=== PATIENT | female | born 1975 | race Caucasian/White ===

== ENCOUNTER 2017-03-15 07:39 | Inpatient (IN) | payer SELFPAY ==
[~2017-03-15] VITALS: Ht 170.2 cm; Wt 75.0 kg
[2017-03-15] VITALS (7 sets, daily range): BP systolic 98–135; BP diastolic 60–79; PULSE 80–93; RESP 16–18; TEMP 98.3–100.7; O2SAT 99–100
[2017-03-15] MEDS ORDERED: PANTOPRAZOLE SODIUM 40 MG VIAL IVP ONE (08:30)
[2017-03-15] MEDS ORDERED: ONDANSETRON HCL 4 MG/2 ML VIAL IVP ONE (08:30)
--- NOTE | 2017-03-15 08:35 | PD ---
HPI Chief Complaint: Abdominal Pain Time Seen by Provider: 08:23 Travel History International Travel<30 days: No Contact w/Intl Traveler<30days: No Traveled to known affect area: No History of Present Illness HPI 41-year-old female complains of left-sided abdominal pain with nausea. Patient states that the pain started this morning. Patient stated the pain is cramping pain intermittent pain localized to left side abdomen. Patient denies any pain radiation. Patient states that she has nausea but no vomiting diarrhea. Patient denies any dysuria or frequency. Patient denies any vaginal discharge or bleeding. Patient denies any fever chills. Patient denies any history GI issues in the past. Patient states that she unable to take any NSAIDs or pain medication. On a scale of 1-10 the pain is a 9. PFSH Past Medical History ?: Unknown Social History Tobacco Use: No Allergies-Medications (Allergen,Severity, Reaction): Uncoded Allergies: "PAIN KILLERS" (Adverse Reaction, Unknown, 03/15/17) Review of Systems General / Constitutional: No: Fever Eyes: No: Visual changes HENT: No: Headaches Cardiovascular: No: Chest Pain or Discomfort Respiratory: No: Shortness of Breath Gastrointestinal: Positive: Nausea, Abdominal Pain Genitourinary: No: Dysuria Musculoskeletal: No: Pain Skin: No Rash Neurologic: No: Weakness Psychiatric: No: Depression Endocrine: No: Polydipsia Hematologic/Lymphatic: No: Easy Bruising Physical Exam Narrative GENERAL: Well-nourished, well-developed patient. SKIN: Focused skin assessment warm/dry. HEAD: Normocephalic. EYES: No scleral icterus. No injection or drainage. NECK: Supple, trachea midline. No JVD or lymphadenopathy. CARDIOVASCULAR: Regular rate and rhythm without murmurs, gallops, or rubs. RESPIRATORY: Breath sounds equal bilaterally. No accessory muscle use. GASTROINTESTINAL: Abdomen soft, nondistended. Patient has moderate tenderness on palpation left upper quadrant left mid abdomen and left low quadrant of the abdomen. No rebound tenderness. No mass. MUSCULOSKELETAL: No cyanosis, or edema. BACK: Nontender without obvious deformity. No CVA tenderness. Neurologic exam normal. Data Data Last Documented VS Vital Signs Date Time Temp Pulse Resp B/P Pulse Ox O2 Delivery O2 Flow Rate FiO2 03/15/17 10:20 82 18 123/78 99 Room Air 03/15/17 07:40 98.3 Orders Complete Blood Count With Diff (03/15/17 08:29) Comprehensive Metabolic Panel (03/15/17 08:29) Lipase (03/15/17 08:29) Prothrombin Time / Inr (Pt) (03/15/17 08:29) Act Partial Throm Time (Ptt) (03/15/17 08:29) Urinalysis - C+S If Indicated (03/15/17 08:29) Ct Abd/Pel W Iv Contrast(Rout) (03/15/17 08:29) Iv Access Insert/Monitor (03/15/17 08:29) Ecg Monitoring (03/15/17 08:29) Oximetry (03/15/17 08:29) Ondansetron Inj (Zofran Inj) (03/15/17 08:30) Pantoprazole Inj (Protonix Inj) (03/15/17 08:30) Sodium Chlor 0.9% 1000 Ml Inj (Ns 1000 M (03/15/17 08:29) Ed Urine Pregnancytest Poc (03/15/17 08:29) Iohexol 350 Inj (Omnipaque 350 Inj) (03/15/17 09:44) Piperacil-Tazo 3.375 Gm Premix (Zosyn 3. (03/15/17 10:15) Metronidazole 500 Mg Inj (Flagyl 500 Mg (03/15/17 10:15) Admit Order (Ed Use Only) (03/15/17 10:38) Code Status (03/15/17 10:37) Vital Signs (Adult) Q4H (03/15/17 10:37) Activity Oob Ad C[place] (03/15/17 10:37) Intake + Output ARUN.QSHIFT (03/15/17 10:37) Notify Dr: Other (03/15/17 10:37) Diet Clear Liquid (03/15/17 Lunch) Sodium Chlor 0.9% 1000 Ml Inj (Ns 1000 M (03/15/17 10:37) Sodium Chloride 0.9% Flush (Ns Flush) (03/15/17 10:45) Sodium Chloride 0.9% Flush (Ns Flush) (03/15/17 21:00) Acetaminophen (Tylenol) (03/15/17 10:45) Ondansetron Inj (Zofran Inj) (03/15/17 10:45) Comprehensive Metabolic Panel (03/16/17 06:00) Complete Blood Count With Diff (03/16/17 06:00) Blood Culture (03/15/17 10:37) Lipase (03/16/17 06:00) Enoxaparin Inj (Lovenox Inj) (03/15/17 11:00) Naloxone Inj (Narcan Inj) (03/15/17 10:45) Inpatient Certification (03/15/17 ) Metronidazole 500 Mg Inj (Flagyl 500 Mg (03/15/17 18:00) Ciprofloxacin 400 Mg Premix (Cipro 400 M (03/15/17 11:00) Labs Laboratory Tests Test 03/15/17 08:30 White Blood Count 16.4 TH/MM3 Red Blood Count 4.55 MIL/MM3 Hemoglobin 12.7 GM/DL Hematocrit 39.8 % Mean Corpuscular Volume 87.4 FL Mean Corpuscular Hemoglobin 27.9 PG Mean Corpuscular Hemoglobin 31.9 % Concent Red Cell Distribution Width 14.1 % Platelet Count 188 TH/MM3 Mean Platelet Volume 8.9 FL Neutrophils (%) (Auto) 86.2 % Lymphocytes (%) (Auto) 6.7 % Monocytes (%) (Auto) 6.8 % Eosinophils (%) (Auto) 0.1 % Basophils (%) (Auto) 0.2 % Neutrophils # (Auto) 14.1 TH/MM3 Lymphocytes # (Auto) 1.1 TH/MM3 Monocytes # (Auto) 1.1 TH/MM3 Eosinophils # (Auto) 0.0 TH/MM3 Basophils # (Auto) 0.0 TH/MM3 CBC Comment DIFF FINAL Differential Comment Prothrombin Time 11.0 SEC Prothromb Time International 1.0 RATIO Ratio Activated Partial 23.2 SEC Thromboplast Time Urine Color YELLOW Urine Turbidity CLEAR Urine pH 6.5 Urine Specific [employer] 1.029 Urine Protein TRACE mg/dL Urine Glucose (UA) NEG mg/dL Urine Ketones NEG mg/dL Urine Occult Blood NEG Urine Nitrite NEG Urine Bilirubin NEG Urine Urobilinogen LESS THAN 2.0 MG/DL Urine Leukocyte Esterase SMALL Urine RBC 2 /hpf Urine WBC 4 /hpf Urine Squamous Epithelial 3 /hpf Cells Urine Mucus FEW /lpf Urine Trichomonas RARE Microscopic Urinalysis Comment CULT NOT INDICATED Sodium Level 135 MEQ/L Potassium Level 3.6 MEQ/L Chloride Level 104 MEQ/L Carbon Dioxide Level 25.1 MEQ/L Anion Gap 6 MEQ/L Blood Urea Nitrogen 13 MG/DL Creatinine 0.84 MG/DL Estimat Glomerular Filtration 74 ML/MIN Rate Random Glucose 112 MG/DL Calcium Level 8.4 MG/DL Total Bilirubin 0.4 MG/DL Aspartate Amino Transf 12 U/L (AST/SGOT) Alanine Aminotransferase 18 U/L (ALT/SGPT) Alkaline Phosphatase 44 U/L Total Protein 7.3 GM/DL Albumin 3.5 GM/DL Lipase 118 U/L Urine Opiates Screen NEG Urine Barbiturates Screen NEG Urine Amphetamines Screen NEG Urine Benzodiazepines Screen NEG Urine Cocaine Screen NEG Urine Cannabinoids Screen NEG MDM Medical Decision Making Medical Screen Exam Complete: Yes Emergency Medical Condition: Yes Interpretation(s) 9:30 AM. CBC WBC 16.4. 86 neutrophil. CMP within normal limit. UA is negative. Differential Diagnosis Differential diagnosis including gastritis, PUD, pancreatitis, cholecystitis, colitis, UTI, pyelonephritis, nephrolithiasis. Narrative Course 41-year-old female with left-sided abdominal pain. Normal saline solution 1 25 cc an hour. Protonix 40 mg IV. Zofran 4 mg IV. Zosyn 3.375 g IV. Flagyl 500 mg IV. Diagnosis Primary Impression: Enteritis Additional Impression: Ileus Admitting Information Admitting Physician Requests: Observation Arun Sher MD Mar 15, 2017 08:35
[2017-03-15] MEDS: SODIUM CHLOR 0.9% 1000 ML INJ 1,000 ML IV SCH ×4 (08:40→16:34)
[2017-03-15 08:48] LABS: AUTOMATED NEUTROPHIL # 14.1 TH/MM3 (1.8-7.7); BASOPHIL % 0.2 % (0.0-2.0); EOSINOPHIL % 0.1 % (0.0-4.0); HEMATOCRIT 39.8 % (35.0-46.0); HEMO FLAGS DIFF FINAL; LYMPH % 6.7 % (9.0-44.0); LYMPHOCYTE # 1.1 TH/MM3 (1.0-4.8); MEAN CELL VOLUME 87.4 FL (80.0-100.0); MEAN CORPUSCULAR HEMOGLOBIN 27.9 PG (27.0-34.0); MEAN CORPUSCULAR HGB CONC 31.9 % (32.0-36.0); MONO % 6.8 % (0.0-8.0); NEUT % 86.2 % (16.0-70.0); PLATELET COUNT 188 TH/MM3 (150-450); RED BLOOD COUNT 4.55 MIL/MM3 (4.00-5.30); RED CELL DISTRIBUTION WIDTH 14.1 % (11.6-17.2); WHITE BLOOD COUNT 16.4 TH/MM3 (4.0-11.0)
[2017-03-15 08:55] LABS: APTT (PATIENT) 23.2 SEC (24.3-30.1)
[2017-03-15 08:58] LABS: BLOOD, URINE NEG (NEG); COMMENT (UR) CULT NOT INDICATED; CULTURE IF INDICATED CULT NOT INDICATED; GLUCOSE,URINE NEG (NEG); KETONE, URINE NEG (NEG); MUCUS URINE FEW /lpf (OCC); NITRITE,URINE NEG (NEG); PH, URINE 6.5 (5.0-8.5); SQUAMOUS EPITHELIAL CELL URINE 3 /hpf (0-5); URINE COLOR YELLOW (YELLW/STRAW)
[2017-03-15 09:09] LABS: ALT (GPT) 18 U/L (10-53); ANION GAP 6 MEQ/L (5-15); AST (GOT) 12 U/L (15-37); BICARBONATE 25.1 MEQ/L (21.0-32.0); BLOOD UREA NITROGEN 13 MG/DL (7-18); CHLORIDE 104 MEQ/L (98-107); GLOMERULAR FILTRATION RATE 74 ML/MIN (>89); POTASSIUM 3.6 MEQ/L (3.5-5.1); SODIUM (NA) 135 MEQ/L (136-145)
[2017-03-15 09:12] LABS: ALKALINE PHOSPHATASE 44 U/L (45-117); TOTAL BILIRUBIN ADULT 0.4 MG/DL (0.2-1.0)
[2017-03-15] MEDS ORDERED: IOHEXOL 350 MG/ML 10 ML VIAL (for RAD DIAG) IV ONE (09:44)
--- NOTE | 2017-03-15 09:56 | RADRPT ---
EXAM DATE/TIME: 03/15/2017 09:29 [facility] COMPARISON: No previous studies available for comparison. INDICATIONS : Left lower abdomen pain today. IV CONTRAST: 86 cc Omnipaque 350 (iohexol) IV ORAL CONTRAST: No oral contrast ingested. RADIATION DOSE: 10.89 CTDIvol (mGy) MEDICAL HISTORY : None SURGICAL HISTORY : None. ENCOUNTER: Initial ACUITY: 1 day PAIN SCALE: 8/10 LOCATION: Left lower quadrant TECHNIQUE: Volumetric scanning of the abdomen and pelvis was performed. Using automated exposure control and ad justment of the mA and/or kV according to patient size, radiation dose was kept as low as reasonably achievable to obtain optimal diagnostic quality images. DICOM format image data is available electro nically for review and comparison. FINDINGS: CT Abdomen: The liver, spleen, pancreas, kidneys, adrenals are unremarkable. There is no evidence for any appreciable pathological adenopathy, free fluid, or bowel obstruction. There is slight nondescri pt fluid within mesentery made and lower abdomen towards the midline. This is nonspecific, however th ere appears to be some degree of fecalization of the surrounding small bowel bowel loops without any obstruction or any significant dilatation. CT pelvis: There are tiny cysts in the right ovary the largest measures 1.2 cm in size. CONCLUSION: Nondescript slight fluid within the mesenteric root with slight fecalization of the s urrounding small bowel bowel and no signs of obstruction. The exact etiology is not certain could be inflammatory due to localized ileus and follow up is recommended after appropriate clinical therapy. Susie Givens MD on March 15, 2017 at 9:48 Board Certified Radiologist. This report was verified electronically.
[2017-03-15] MEDS ORDERED: PIPERACIL-TAZO 3.375 GM PREMIX 50 ML IV ONE (10:15)
[2017-03-15] MEDS ORDERED: metroNIDAZOLE 500 MG INJ 100 ML IV ONE (10:15)
[2017-03-15] MEDS ORDERED: ACETAMINOPHEN 325 MG TAB PO PRN (10:45)
[2017-03-15] MEDS ORDERED: NALOXONE HCL 0.4 MG/ML AMP IV PRN (10:45)
[2017-03-15] MEDS ORDERED: SODIUM CHLORIDE 0.9% FLUSH 10 ML FLUSH IV FLUSH PRN (10:45)
[2017-03-15] MEDS ORDERED: ONDANSETRON HCL 4 MG/2 ML VIAL IVP PRN (10:45)
--- NOTE | 2017-03-15 10:47 | HHI.HP ---
HPI Service [facility] ([place], [place])ists Primary Care Physician No Primary Care Physician Admission Diagnosis abdominal pain. Enteritis. Ileus. Diagnoses: Chief Complaint: Abdominal pain Travel History International Travel<30 Days: No Contact w/Intl Traveler <30 Da: No Traveled to Known Affected Are: No History of Present Illness This is a pleasant 41 y/o Female with n past medical history who came to ER with left sided abdominal pain with nausea, Patient states that the pain started this morning. Patient stated the pain is cramping pain intermittent pain localized to left side abdomen. Patient denies any pain radiation. Patient states that she has nausea but no vomiting diarrhea. Patient denies any dysuria or frequency. Patient denies any vaginal discharge or bleeding. Patient denies any fever chills. Patient denies any history GI issues in the past. Patient states that she unable to take any NSAIDs or pain medication. On a scale of 1-10 the pain is a 9. Seen in Emergency Room the pain is on left lower quadrant, 9/10 in intensity, non radiated. started early in am today when she woke up. states she is visiting from [place] where she has a Bar. but she states drinks alcohol only occasional Review of Systems Gastrointestinal: COMPLAINS OF: Abdominal pain, Nausea Except as stated in HPI: all other systems reviewed are Neg Past Family Social History Past Medical History Asked to the patient and denies. Past Surgical History asked the patient and denied. Reported Medications No active medicines. Allergies: Uncoded Allergies: "PAIN KILLERS" (Adverse Reaction, Unknown, 03/15/17) Active Ordered Medications Current Medications Medications (Trade) Dose Ordered Sig/[place] Route Start Time Stop Time Status Last Admin Sodium Chloride 1,000 ml @ 125 mls/hr Q8H IV 03/15/17 08:29 03/15/17 16:28 03/15/17 10:34 (NS 1000 ml Inj) 1,000 ml @ 100 mls/hr Q10H IV 03/15/17 10:37 03/15/17 10:37 (NS Flush) 2 ml UNSCH PRN IV FLUSH 03/15/17 10:45 (NS Flush) 2 ml BID IV FLUSH 03/15/17 21:00 (Tylenol) 650 mg Q4H PRN PO 03/15/17 10:45 (Zofran Inj) 4 mg Q6H PRN IVP 03/15/17 10:45 (Lovenox Inj) 40 mg Q24H SQ 03/15/17 11:00 Naloxone HCl 0.4 mg 0.4 mg UNSCH PRN IV 03/15/17 10:45 Metronidazole 100 ml @ 100 mls/hr Q8H IV 03/15/17 18:00 (Cipro 400 Mg Premix) 200 ml @ 200 mls/hr Q12H IV 03/15/17 11:00 Family History Asked and denied by patient. Social History She lives in [place] visiting, she has a Bar in [place], denies any toxic habits. Physical Exam Vital Signs Vital Signs Date Time Temp Pulse Resp B/P Pulse Ox O2 Delivery O2 Flow Rate FiO2 03/15/17 10:20 82 18 123/78 99 Room Air 03/15/17 08:31 18 100 Room Air 03/15/17 07:59 18 03/15/17 07:40 98.3 80 16 135/79 99 Physical Exam GENERAL: Well-nourished, Obesity. SKIN: Focused skin assessment warm/dry. HEAD: Normocephalic. EYES: No scleral icterus. No injection or drainage. NECK: Supple, trachea midline. No JVD or lymphadenopathy. CARDIOVASCULAR: Regular rate and rhythm without murmurs, gallops, or rubs. RESPIRATORY: Breath sounds equal bilaterally. No accessory muscle use. GASTROINTESTINAL: Abdomen soft, moderate distension, tender on palpation diffuse. MUSCULOSKELETAL: No cyanosis, or edema. BACK: Nontender without obvious deformity. No CVA tenderness. Neurologic exam normal. Laboratory Laboratory Tests Test 03/15/17 08:30 White Blood Count 16.4 Red Blood Count 4.55 Hemoglobin 12.7 Hematocrit 39.8 Mean Corpuscular Volume 87.4 Mean Corpuscular Hemoglobin 27.9 Mean Corpuscular Hemoglobin 31.9 Concent Red Cell Distribution Width 14.1 Platelet Count 188 Mean Platelet Volume 8.9 Neutrophils (%) (Auto) 86.2 Lymphocytes (%) (Auto) 6.7 Monocytes (%) (Auto) 6.8 Eosinophils (%) (Auto) 0.1 Basophils (%) (Auto) 0.2 Neutrophils # (Auto) 14.1 Lymphocytes # (Auto) 1.1 Monocytes # (Auto) 1.1 Eosinophils # (Auto) 0.0 Basophils # (Auto) 0.0 CBC Comment DIFF FINAL Differential Comment Prothrombin Time 11.0 Prothromb Time International 1.0 Ratio Activated Partial 23.2 Thromboplast Time Urine Color YELLOW Urine Turbidity CLEAR Urine pH 6.5 Urine Specific [place] 1.029 Urine Protein TRACE Urine Glucose (UA) NEG Urine Ketones NEG Urine Occult Blood NEG Urine Nitrite NEG Urine Bilirubin NEG Urine Urobilinogen LESS THAN 2.0 Urine Leukocyte Esterase SMALL Urine RBC 2 Urine WBC 4 Urine Squamous Epithelial 3 Cells Urine Mucus FEW Urine Trichomonas RARE Microscopic Urinalysis Comment CULT NOT INDICATED Sodium Level 135 Potassium Level 3.6 Chloride Level 104 Carbon Dioxide Level 25.1 Anion Gap 6 Blood Urea Nitrogen 13 Creatinine 0.84 Estimat Glomerular Filtration 74 Rate Random Glucose 112 Calcium Level 8.4 Total Bilirubin 0.4 Aspartate Amino Transf 12 (AST/SGOT) Alanine Aminotransferase 18 (ALT/SGPT) Alkaline Phosphatase 44 Total Protein 7.3 Albumin 3.5 Lipase 118 Result Diagram: 03/15/1782903/15/17829 Imaging Last Impressions Abdomen/Pelvis CT 03/15/17828 Signed Impressions: Service Date/Time: Wednesday, March 15, 2017 09:29 - CONCLUSION: Nondescript slight fluid within the mesenteric root with slight fecalization of the surrounding small bowel bowel and no signs of obstruction. The exact etiology is not certain could be inflammatory due to localized ileus and follow up is recommended after appropriate clinical therapy. Susie Givens MD Assessment and Plan Assessment and Plan 1. Enteritis given Zosyn in ER and Flagyl will continue Flagyl plus Ciprofloxacin, pain control consult GI specialist 2. Obesity strongly recommended diet and exercise DVT prophylaxis with Lovenox Gastric protection with Protonix. Discussed with ER specialist Doctor Arun Sher. Code Status Full Code. Discussed Condition With Patient and ER specialist. Physician Certification 2 Midnight Certification Type: Admission for Inpatient Services Order for Inpatient Services The services are ordered in accordance with Medicare regulations or non- Medicare payer requirements, as applicable. In the case of services not specified as inpatient-only, they are appropriately provided as inpatient services in accordance with the 2-midnight benchmark. Estimated LOS (days): 3 days is the estimated time the patient will need to remain in the hospital, assuming treatment plan goals are met and no additional complications. Post-Hospital Plan: Not yet determined Markie Goldberg MD Mar 15, 2017 10:47
[2017-03-15] MEDS: ENOXAPARIN SODIUM 40 MG/0.4 ML SYRINGE SQ SCH (11:00)
[2017-03-15 11:29] LABS: AMPHETAMINE, URINE NEG (NEG); BARBITURATES, URINE NEG (NEG); COCAINE, URINE NEG (NEG)
[2017-03-15] MEDS ORDERED: POTASSIUM CHLORIDE 20 MEQ CONTROLLED RELEASE TAB PO ONE (13:45)
--- NOTE | 2017-03-15 15:17 | PD.CONS ---
HPI History of Present Illness This is a 41 year old female who presented to the ER for evaluation of nausea with left sided abdominal pain. She reports that the pain woke her up from her sleep around 4am last night. She did not have any suspicious food yesterday- states she had steamed fish and rice for dinner last night and that she made this her self. She reports that it was a severe LUQ cramping like pain without radiation. She has associated nausea without vomiting. She has mild bloating, but denies any constipation, diarrhea, melena, or hematochezia. There are no aggravating or alleviating factors. She thought it was gas pain and tried to drink a cup of tea when her symptoms began to see if it would help, but this did not improve her symptoms. She is visiting from [place] and has been here 5 months. She denies any sick contacts, suspicious foods, or recent antibiotic use. She states her symptoms have improved since her arrival to the hospital, although she has significant left sided abdominal tenderness on exam, as well as some ruq tenderness- mild. She denies any history of stomach ulcers. She does not take NSAIDs and only occasionally drinks ETOH. Abdomen/Pelvis CT (03/15)---->Nondescript slight fluid within the mesenteric root with slight focalization of the surrounding small bowel bowel and no signs of obstruction. The exact etiology is not certain could be inflammatory due to localized ileus and follow up is recommended after appropriate clinical therapy. GI was consulted for further evaluation and treatment. (Venecia Salazar) [facility] Past Medical History Denies Past Surgical History Denies (Venecia Salazar) Uncoded Allergies: "PAIN KILLERS" (Adverse Reaction, Unknown, 03/15/17) Medications Allergies Uncoded Allergies Type Severity Reaction Last Updated Verified "PAIN KILLERS" Adverse Reaction Unknown 03/15/17 Denies Family History Mother from lung cancer Father from bleeding ulcer Social History Visiting from [place]- has been here 5 months No illicit drug use, tobacco. Occasional etoh use. (Venecia Salazar) Review of Systems Constitutional: COMPLAINS OF: Fatigue, Chills, DENIES: Fever, Weight loss, Change in appetite Respiratory: DENIES: Cough, Shortness of breath Cardiovascular: DENIES: Chest pain Gastrointestinal: COMPLAINS OF: Abdominal pain, Nausea, Swelling of Abdomen, DENIES: Black stools, Bloody stools, Constipation, Diarrhea, Vomiting, Heartburn Genitourinary: DENIES: Urinary frequency, Urinary incontinence, Urgency Musculoskeletal: DENIES: Back pain Integumentary: DENIES: Rash Neurologic: DENIES: Headache Psychiatric: DENIES: Confusion (Venecia Salazar) GI Exam Vitals I&O Vital Signs Date Time Temp Pulse Resp B/P Pulse Ox O2 Delivery O2 Flow Rate FiO2 03/15/17 14:00 99.6 89 16 109/66 99 03/15/17 13:36 88 18 103/64 100 Room Air 03/15/17 10:20 82 18 123/78 99 Room Air 03/15/17 08:31 18 100 Room Air 03/15/17 07:59 18 03/15/17 07:40 98.3 80 16 135/79 99 Imaging Last Impressions Abdomen/Pelvis CT 03/15/17 0829 Signed Impressions: Service Date/Time: Wednesday, March 15, 2017 09:29 - CONCLUSION: Nondescript slight fluid within the mesenteric root with slight fecalization of the surrounding small bowel bowel and no signs of obstruction. The exact etiology is not certain could be inflammatory due to localized ileus and follow up is recommended after appropriate clinical therapy. Susie Givens MD Laboratory Test 03/15/17 08:30 White Blood Count 16.4 TH/MM3 Red Blood Count 4.55 MIL/MM3 Hemoglobin 12.7 GM/DL Hematocrit 39.8 % Mean Corpuscular Volume 87.4 FL Mean Corpuscular Hemoglobin 27.9 PG Mean Corpuscular Hemoglobin 31.9 % Concent Red Cell Distribution Width 14.1 % Platelet Count 188 TH/MM3 Mean Platelet Volume 8.9 FL Neutrophils (%) (Auto) 86.2 % Lymphocytes (%) (Auto) 6.7 % Monocytes (%) (Auto) 6.8 % Eosinophils (%) (Auto) 0.1 % Basophils (%) (Auto) 0.2 % Neutrophils # (Auto) 14.1 TH/MM3 Lymphocytes # (Auto) 1.1 TH/MM3 Monocytes # (Auto) 1.1 TH/MM3 Eosinophils # (Auto) 0.0 TH/MM3 Basophils # (Auto) 0.0 TH/MM3 CBC Comment DIFF FINAL Differential Comment Prothrombin Time 11.0 SEC Prothromb Time International 1.0 RATIO Ratio Activated Partial 23.2 SEC Thromboplast Time Urine Color YELLOW Urine Turbidity CLEAR Urine pH 6.5 Urine Specific [place] 1.029 Urine Protein TRACE mg/dL Urine Glucose (UA) NEG mg/dL Urine Ketones NEG mg/dL Urine Occult Blood NEG Urine Nitrite NEG Urine Bilirubin NEG Urine Urobilinogen LESS THAN 2.0 MG/DL Urine Leukocyte Esterase SMALL Urine RBC 2 /hpf Urine WBC 4 /hpf Urine Squamous Epithelial 3 /hpf Cells Urine Mucus FEW /lpf Urine Trichomonas RARE Microscopic Urinalysis Comment CULT NOT INDICATED Sodium Level 135 MEQ/L Potassium Level 3.6 MEQ/L Chloride Level 104 MEQ/L Carbon Dioxide Level 25.1 MEQ/L Anion Gap 6 MEQ/L Blood Urea Nitrogen 13 MG/DL Creatinine 0.84 MG/DL Estimat Glomerular Filtration 74 ML/MIN Rate Random Glucose 112 MG/DL Calcium Level 8.4 MG/DL Total Bilirubin 0.4 MG/DL Aspartate Amino Transf 12 U/L (AST/SGOT) Alanine Aminotransferase 18 U/L (ALT/SGPT) Alkaline Phosphatase 44 U/L Total Protein 7.3 GM/DL Albumin 3.5 GM/DL Lipase 118 U/L Urine Opiates Screen NEG Urine Barbiturates Screen NEG Urine Amphetamines Screen NEG Urine Benzodiazepines Screen NEG Urine Cocaine Screen NEG Urine Cannabinoids Screen NEG Date/Time Procedure Status Source Growth 03/15/17 13:15 Aerobic Blood Culture Received Blood Peripheral Pending 03/15/17 13:15 Anaerobic Blood Culture Received Blood Peripheral Pending Physical Examination HEENT: Normocephalic; atraumatic; no jaundice. CHEST: CTA CARDIAC: RRR ABDOMEN: Soft, nondistended, mild ruq tenderness, significant left sided tenderness, more in luq; no hepatosplenomegaly; bowel sounds are present in all four quadrants. EXTREMITIES: No clubbing, cyanosis, or edema. SKIN: Normal; no rash; no jaundice. [employer]CHNICIAN: No focal deficits; alert and oriented times three. (Venecia Salazar) Assessment and Plan Plan ASSESSMENT: - Enteritis with abdominal pain and nausea. Pt has been visiting from [place] x 5 months. Sudden onset of left sided abdominal pain (cramping) with associated nausea- no vomiting. No diarrhea, melena, hematochezia. She denies suspicious food, sick contacts , or recent abx use. States she just had her menstrual cycle 2 days ago. Abdomen/Pelvis CT (03/15/17)----> Nondescript slight fluid within the mesenteric root with slight focalization of the surrounding small bowel bowel and no signs of obstruction. The exact etiology is not certain could be inflammatory due to localized ileus and follow up is recommended after appropriate clinical therapy. No NSAIDs. Occasional ETOH use. WBC 16.4. LFT/ Lipase unremarkable. Protonix Cipro/Flagyl. IVF. Will get stool studies when she moves bowels. - Leukocytosis, likely secondary to above. WBC 16.4. Cipro/Flagyl PLAN: - Clear liquids - Cont. PPI - Cont. Cipro/Flagyl - Stool studies - CBC, BMP in am - Supportive care - Further recommendations to follow based on results of above - Pt seen and examined by Dr. Roblero and myself and this note is written on her behalf (Venecia Salazar) Physician Comments seen, examined agree with above mra abdomen egd/colon next week fu stool studies (Vanessa Roblero MD) Venecia Salazar Mar 15, 2017 15:17 Vanessa Roblero MD Mar 16, 2017 07:59
[2017-03-15] MEDS: SUCRALFATE 1 GM/10 ML CUP PO SCH ×2 (16:33→20:48)
[2017-03-15] MEDS: CIPROFLOXACIN 400 MG PREMIX 200 ML IV SCH (16:34)
[2017-03-15] MEDS ORDERED: GADODIAMIDE PF 287 MG/ML 10 ML VIAL (for RAD MRI) IV ONE (18:10)
[2017-03-15] MEDS: SIMETHICONE SUSP DROPS 40 MG/0.6 ML 30 ML BTL PO PRN (18:40)
[2017-03-15] MEDS: DICYCLOMINE HCL 20 MG TAB PO SCH (18:40)
--- NOTE | 2017-03-15 19:45 | RADRPT ---
EXAM DATE/TIME: 03/15/2017 18:02 [facility] COMPARISON: CT ABDOMEN & PELVIS W CONTRAST, March 15, 2017, 9:29. INDICATIONS : Abdominal pain CONTRAST: 30 cc Omniscan (gadodiamide) IV MEDICAL HISTORY : None. SURGICAL HISTORY : None. ENCOUNTER: Initial ACUITY: 1 day PAIN SCORE: 4/10 LOCATION: Abdomen. TECHNIQUE: Bolus infused MR angiography was performed. The data was postprocessed with a variety of visualizati on algorithms including full-volume maximum-intensity projection, multiplanar sliding thin slab refor mation, and curved planar reformation. FINDINGS: ABDOMINAL AORTA: The lumen is smooth without significant narrowing or aneurysmal dilatation. The proximal celiac and s uperior mesenteric arteries are patent and normal in diameter. RENAL ARTERIES: There are two renal arteries bilaterally. No evidence of ostial or segmental stenosis. KIDNEYS: There is symmetric renal size. There is homogeneous enhancement in the parenchyma. BIFURCATION: Normal. RIGHT PELVIS: The right common iliac, internal iliac, and external iliac vessels are patent without luminal irregul arity. LEFT PELVIS: The left common iliac, internal iliac, and external iliac vessels are patent and without luminal irre gularity. RETROPERITONEUM: The adrenal glands are unremarkable. No adenopathy seen. CONCLUSION: Normal MRA of the abdomen. Hao Haley MD on March 15, 2017 at 19:39 Board Certified Radiologist. This report was verified electronically.
[2017-03-15] MEDS: metroNIDAZOLE 500 MG INJ 100 ML IV SCH (20:42)
[2017-03-15] MEDS: PANTOPRAZOLE SODIUM 40 MG VIAL IV PUSH SCH (20:45)
[2017-03-15] MEDS: SODIUM CHLORIDE 0.9% FLUSH 10 ML FLUSH IV FLUSH SCH (20:50)
[2017-03-16] VITALS: BP 96/55; PULSE 82; RESP 16; TEMP 99.9; O2SAT 100
[2017-03-16] MEDS: CIPROFLOXACIN 400 MG PREMIX 200 ML IV SCH ×3 (01:37→21:21)
[2017-03-16] MEDS: metroNIDAZOLE 500 MG INJ 100 ML IV SCH ×3 (02:56→16:29)
[2017-03-16 04:00] VITALS: BP 95/62; PULSE 74; RESP 16; TEMP 97.6; O2SAT 95
[2017-03-16 05:04] LABS: AUTOMATED NEUTROPHIL # 14.5 TH/MM3 (1.8-7.7); BASOPHIL # 0.1 TH/MM3 (0-0.2); BASOPHIL % 0.3 % (0.0-2.0); EOSINOPHIL % 0.2 % (0.0-4.0); HEMO FLAGS DIFF FINAL; LYMPH % 15.1 % (9.0-44.0); LYMPHOCYTE # 2.8 TH/MM3 (1.0-4.8); MEAN CELL VOLUME 86.5 FL (80.0-100.0); MEAN CORPUSCULAR HEMOGLOBIN 28.5 PG (27.0-34.0); MEAN CORPUSCULAR HGB CONC 32.9 % (32.0-36.0); MONO % 7.2 % (0.0-8.0); NEUT % 77.2 % (16.0-70.0); PLATELET COUNT 174 TH/MM3 (150-450); RED BLOOD COUNT 4.16 MIL/MM3 (4.00-5.30); RED CELL DISTRIBUTION WIDTH 14.2 % (11.6-17.2); WHITE BLOOD COUNT 18.7 TH/MM3 (4.0-11.0)
[2017-03-16 05:33] LABS: ALKALINE PHOSPHATASE 43 U/L (45-117); ALT (GPT) 12 U/L (10-53); ANION GAP 10 MEQ/L (5-15); AST (GOT) 7 U/L (15-37); BICARBONATE 21.8 MEQ/L (21.0-32.0); BLOOD UREA NITROGEN 6 MG/DL (7-18); CHLORIDE 108 MEQ/L (98-107); GLOMERULAR FILTRATION RATE 86 ML/MIN (>89); POTASSIUM 3.4 MEQ/L (3.5-5.1); SODIUM (NA) 140 MEQ/L (136-145); TOTAL BILIRUBIN ADULT 0.7 MG/DL (0.2-1.0)
[2017-03-16] MEDS: SUCRALFATE 1 GM/10 ML CUP PO SCH ×4 (06:18→21:21)
[2017-03-16] MEDS: SODIUM CHLOR 0.9% 1000 ML INJ 1,000 ML IV SCH ×3 (06:21→21:26)
[2017-03-16 08:00] VITALS: BP 94/61; PULSE 77; RESP 17; TEMP 97.7; O2SAT 92
[2017-03-16] MEDS: SODIUM CHLORIDE 0.9% FLUSH 10 ML FLUSH IV FLUSH SCH ×2 (08:24→21:00)
[2017-03-16] MEDS: SIMETHICONE SUSP DROPS 40 MG/0.6 ML 30 ML BTL PO PRN (08:26)
[2017-03-16] MEDS: DICYCLOMINE HCL 20 MG TAB PO SCH ×3 (08:26→16:29)
[2017-03-16] MEDS: PANTOPRAZOLE SODIUM 40 MG VIAL IV PUSH SCH ×2 (08:26→21:18)
--- NOTE | 2017-03-16 09:35 | HHI.PR ---
Subjective Remarks This is a pleasant 41 y/o Female with n past medical history who came to ER with left sided abdominal pain with nausea, Patient states that the pain started this morning. Patient stated the pain is cramping pain intermittent pain localized to left side abdomen. Patient denies any pain radiation. Patient states that she has nausea but no vomiting diarrhea. Patient denies any dysuria or frequency. Patient denies any vaginal discharge or bleeding. Patient denies any fever chills. Patient denies any history GI issues in the past. Patient states that she unable to take any NSAIDs or pain medication. On a scale of 1-10 the pain is a 9. Seen in Emergency Room the pain is on left lower quadrant, 9/10 in intensity, non radiated. started early in am today when she woke up. states she is visiting from [place] where she has a Bar. but she states drinks alcohol only occasional 03/16: she was afebrile yesterday night will need to be afebrile 48 hours before discharge, she states is feeling well and wants to go Home will continue present care for at least three days IV antibiotics, no nausea, vomit or diarrhea. states do not have a BM will give Lactulose one dose. Objective Vital Signs Date Time Temp Pulse Resp B/P Pulse Ox O2 Delivery O2 Flow Rate FiO2 03/16/17 08:00 97.7 77 17 94/61 92 03/16/17 04:00 97.6 74 16 95/62 95 03/16/17 00:00 99.9 82 16 96/55 100 03/15/17 20:00 100.7 84 16 98/60 100 03/15/17 16:00 100.2 93 18 112/62 100 03/15/17 14:00 99.6 89 16 109/66 99 03/15/17 13:36 88 18 103/64 100 Room Air 03/15/17 10:20 82 18 123/78 99 Room Air I/O 03/15/17 03/15/17 03/15/17 03/16/17 03/16/17 03/16/17 06:59 14:59 22:59 06:59 14:59 22:59 Intake Total 1445 ml Output Total 300 ml Balance -300 ml 1445 ml Intake IV Total 1445 ml Output Urine Total 300 ml # Voids 1 # Bowel Movements 0 Result Diagram: 03/16/17 0443 03/16/17 0443 Imaging Last Impressions Abdomen/Pelvis CT 03/15/17 0829 Signed Impressions: Service Date/Time: Wednesday, March 15, 2017 09:29 - CONCLUSION: Nondescript slight fluid within the mesenteric root with slight fecalization of the surrounding small bowel bowel and no signs of obstruction. The exact etiology is not certain could be inflammatory due to localized ileus and follow up is recommended after appropriate clinical therapy. Susie Givens MD Abdomen Magnetic Resonance Angio 03/15/17 0000 Signed Impressions: Service Date/Time: Wednesday, March 15, 2017 18:02 - CONCLUSION: Normal MRA of the abdomen. Hao Haley MD Procedures None Other Results Laboratory Tests Test 03/15/17 03/15/17 03/16/17 08:30 20:40 04:43 Prothrombin Time 11.0 SEC Prothromb Time International 1.0 RATIO Ratio Activated Partial 23.2 SEC Thromboplast Time Urine Color YELLOW Urine Turbidity CLEAR Urine pH 6.5 Urine Specific [place] 1.029 Urine Protein TRACE mg/dL Urine Glucose (UA) NEG mg/dL Urine Ketones NEG mg/dL Urine Occult Blood NEG Urine Nitrite NEG Urine Bilirubin NEG Urine Urobilinogen LESS THAN 2.0 MG/DL Urine Leukocyte Esterase SMALL Urine RBC 2 /hpf Urine WBC 4 /hpf Urine Squamous Epithelial 3 /hpf Cells Urine Mucus FEW /lpf Urine Trichomonas RARE Microscopic Urinalysis Comment CULT NOT INDICATED Urine Opiates Screen NEG Urine Barbiturates Screen NEG Urine Amphetamines Screen NEG Urine Benzodiazepines Screen NEG Urine Cocaine Screen NEG Urine Cannabinoids Screen NEG Erythrocyte Sedimentation Rate 16 mm/hr White Blood Count 18.7 TH/MM3 Red Blood Count 4.16 MIL/MM3 Hemoglobin 11.8 GM/DL Hematocrit 36.0 % Mean Corpuscular Volume 86.5 FL Mean Corpuscular Hemoglobin 28.5 PG Mean Corpuscular Hemoglobin 32.9 % Concent Red Cell Distribution Width 14.2 % Platelet Count 174 TH/MM3 Mean Platelet Volume 9.2 FL Neutrophils (%) (Auto) 77.2 % Lymphocytes (%) (Auto) 15.1 % Monocytes (%) (Auto) 7.2 % Eosinophils (%) (Auto) 0.2 % Basophils (%) (Auto) 0.3 % Neutrophils # (Auto) 14.5 TH/MM3 Lymphocytes # (Auto) 2.8 TH/MM3 Monocytes # (Auto) 1.3 TH/MM3 Eosinophils # (Auto) 0.0 TH/MM3 Basophils # (Auto) 0.1 TH/MM3 CBC Comment DIFF FINAL Differential Comment Sodium Level 140 MEQ/L Potassium Level 3.4 MEQ/L Chloride Level 108 MEQ/L Carbon Dioxide Level 21.8 MEQ/L Anion Gap 10 MEQ/L Blood Urea Nitrogen 6 MG/DL Creatinine 0.74 MG/DL Estimat Glomerular Filtration 86 ML/MIN Rate Random Glucose 89 MG/DL Calcium Level 7.9 MG/DL Total Bilirubin 0.7 MG/DL Aspartate Amino Transf 7 U/L (AST/SGOT) Alanine Aminotransferase 12 U/L (ALT/SGPT) Alkaline Phosphatase 43 U/L Total Protein 6.5 GM/DL Albumin 2.7 GM/DL Lipase 68 U/L Objective Remarks GENERAL: Well-nourished, Obesity. SKIN: Focused skin assessment warm/dry. HEAD: Normocephalic. EYES: No scleral icterus. No injection or drainage. NECK: Supple, trachea midline. No JVD or lymphadenopathy. CARDIOVASCULAR: Regular rate and rhythm without murmurs, gallops, or rubs. RESPIRATORY: Breath sounds equal bilaterally. No accessory muscle use. GASTROINTESTINAL: Abdomen soft, non tender, positive bowel sounds. MUSCULOSKELETAL: No cyanosis, or edema. BACK: Nontender without obvious deformity. No CVA tenderness. Neurologic exam normal. Medications and IVs Current Medications Medications (Trade) Dose Ordered Sig/Davonte Route Start Time Stop Time Status Last Admin (NS 1000 ml Inj) 1,000 ml @ 100 mls/hr Q10H IV 03/15/17 10:37 03/16/17 06:21 (NS Flush) 2 ml UNSCH PRN IV FLUSH 03/15/17 10:45 (NS Flush) 2 ml BID IV FLUSH 03/15/17 21:00 (Tylenol) 650 mg Q4H PRN PO 03/15/17 10:45 (Zofran Inj) 4 mg Q6H PRN IVP 03/15/17 10:45 (Lovenox Inj) 40 mg Q24H SQ 03/15/17 11:00 Naloxone HCl 0.4 mg 0.4 mg UNSCH PRN IV 03/15/17 10:45 Metronidazole 100 ml @ 100 mls/hr Q8H IV 03/15/17 18:00 03/16/17 08:25 (Cipro 400 Mg Premix) 200 ml @ 200 mls/hr Q12H IV 03/15/17 11:00 03/16/17 01:37 (Protonix Inj) 40 mg Q12H IV PUSH 03/15/17 21:00 03/16/17 08:26 (Carafate Liq) 1 gm ACHS PO 03/15/17 16:00 03/16/17 06:18 (Bentyl) 20 mg TID PO 03/15/17 18:00 03/16/17 08:26 (Simethicone Liq (Drops)) 40 mg QID PRN PO 03/15/17 16:15 03/16/17 08:26 A/P Assessment and Plan 1. Enteritis given Zosyn in ER and Flagyl will continue Flagyl plus Ciprofloxacin, pain control GI following, she was afebrile yesterday night will need to be afebrile 48 hours before going home also continue with Leukocytosis, she wants to go home, explained will need at least three days of IV antibiotics, due to her presentation. 2. Obesity strongly recommended diet and exercise DVT prophylaxis with Lovenox Gastric protection with Protonix. Code Status Full Code. Discussed Condition With Patient, all questions answered to the best of my abilities. Discharge Planning Expected by tomorrow afternoon. Markie Goldberg MD Mar 16, 2017 09:35
[2017-03-16] MEDS ORDERED: POTASSIUM CHLORIDE 20 MEQ CONTROLLED RELEASE TAB PO ONE ×2 (10:00→13:00)
[2017-03-16] MEDS ORDERED: LACTULOSE SYRUP 20 GM/30 ML CUP PO ONE (11:00)
[2017-03-16] MEDS: ENOXAPARIN SODIUM 40 MG/0.4 ML SYRINGE SQ SCH (11:00)
[2017-03-16 12:00] VITALS: BP 96/68; PULSE 77; RESP 18; TEMP 98.4; O2SAT 99
[2017-03-16] MEDS ORDERED: BISACODYL 10 MG SUPP RECTAL ONE (15:30)
[2017-03-16 16:00] VITALS: BP 107/65; PULSE 82; RESP 17; TEMP 100.2; O2SAT 95
--- NOTE | 2017-03-16 16:19 | HHI.GIFU ---
Subjective Remarks Lying in bed. Reports diffuse crampy abdominal pain. Took dose of lactulose and just had loose BM. Denies nausea and vomiting. Asking if she can go home. ( Liz Hyman) Objective Vitals I&O Vital Signs Date Time Temp Pulse Resp B/P Pulse Ox O2 Delivery O2 Flow Rate FiO2 03/16/17 12:00 98.4 77 18 96/68 99 03/16/17 08:00 97.7 77 17 94/61 92 03/16/17 04:00 97.6 74 16 95/62 95 03/16/17 00:00 99.9 82 16 96/55 100 03/15/17 20:00 100.7 84 16 98/60 100 I/O 03/15/17 03/15/17 03/15/17 03/16/17 03/16/17 03/16/17 07:00 15:00 23:00 07:00 15:00 23:00 Intake Total 1445 ml 300 ml Output Total 300 ml 400 ml Balance -300 ml 1445 ml -100 ml Intake Oral 300 ml IV Total 1445 ml Output Urine Total 300 ml 400 ml # Voids 1 # Bowel Movements 0 0 Laboratory Laboratory Tests Test 03/15/17 03/16/17 20:40 04:43 Erythrocyte Sedimentation Rate 16 White Blood Count 18.7 Red Blood Count 4.16 Hemoglobin 11.8 Hematocrit 36.0 Mean Corpuscular Volume 86.5 Mean Corpuscular Hemoglobin 28.5 Mean Corpuscular Hemoglobin 32.9 Concent Red Cell Distribution Width 14.2 Platelet Count 174 Mean Platelet Volume 9.2 Neutrophils (%) (Auto) 77.2 Lymphocytes (%) (Auto) 15.1 Monocytes (%) (Auto) 7.2 Eosinophils (%) (Auto) 0.2 Basophils (%) (Auto) 0.3 Neutrophils # (Auto) 14.5 Lymphocytes # (Auto) 2.8 Monocytes # (Auto) 1.3 Eosinophils # (Auto) 0.0 Basophils # (Auto) 0.1 CBC Comment DIFF FINAL Differential Comment Sodium Level 140 Potassium Level 3.4 Chloride Level 108 Carbon Dioxide Level 21.8 Anion Gap 10 Blood Urea Nitrogen 6 Creatinine 0.74 Estimat Glomerular Filtration 86 Rate Random Glucose 89 Calcium Level 7.9 Total Bilirubin 0.7 Aspartate Amino Transf 7 (AST/SGOT) Alanine Aminotransferase 12 (ALT/SGPT) Alkaline Phosphatase 43 Total Protein 6.5 Albumin 2.7 Lipase 68 Date/Time Procedure Status Source Growth 03/15/17 13:15 Aerobic Blood Culture - Preliminary Resulted Blood Peripheral NO GROWTH IN 1 DAY 03/15/17 13:15 Anaerobic Blood Culture - Final Resulted Blood Peripheral QNS - SEE AEROBE REPORT Imaging Last Impressions Abdomen/Pelvis CT 03/15/17 0829 Signed Impressions: Service Date/Time: Wednesday, March 15, 2017 09:29 - CONCLUSION: Nondescript slight fluid within the mesenteric root with slight fecalization of the surrounding small bowel bowel and no signs of obstruction. The exact etiology is not certain could be inflammatory due to localized ileus and follow up is recommended after appropriate clinical therapy. Susie Givens MD Abdomen Magnetic Resonance Angio 03/15/17 0000 Signed Impressions: Service Date/Time: Wednesday, March 15, 2017 18:02 - CONCLUSION: Normal MRA of the abdomen. Hao Haley MD Physical Exam HEENT: PERRLA NECK: Neck is supple, no JVD, no lymphadenopathy. CHEST: CTA CARDIAC: RRR ABDOMEN: Soft, nondistended, mild diffuse tenderness; no hepatosplenomegaly; bowel sounds are present x 4 quadrants EXTREMITIES: No clubbing, cyanosis, or edema. SKIN: Normal; no rash; no jaundice. 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 (Liz Hyman) Assessment and Plan Plan ASSESSMENT: - Enteritis with abdominal pain and nausea. Pt has been visiting from [place] x 5 months. Sudden onset of left sided abdominal pain (cramping) with associated nausea- no vomiting. No diarrhea, melena, hematochezia. She denies suspicious food, sick contacts, or recent abx use. States she just had her menstrual cycle 3 days ago. Abdomen/Pelvis CT (03/15/17)---->Nondescript slight fluid within the mesenteric root with slight focalization of the surrounding small bowel bowel and no signs of obstruction. The exact etiology is not certain could be inflammatory due to localized ileus and follow up is recommended after appropriate clinical therapy. No NSAIDs. Occasional ETOH use. WBC 18.7. LFT/ Lipase unremarkable. Protonix/Cipro/Flagyl. IVF. Will obtain stool studies. - Leukocytosis, likely secondary to above. WBC 18.7. Afebrile. Blood culture, no growth in 1 day. Cipro/Flagyl. PLAN: - IRMA - Cont. PPI - Cont. Cipro/Flagyl - Stool studies - Monitor labs - Supportive care - Further recommendations to follow based on results of above Patient seen and examined by Dr. Roblero and myself and this note is written on her behalf (Liz Hyman) Physician Comments seen, examined agree with above discussed egd/colonoscopy with her-refusing for now advance diet ok to dc home from [facility] if able to tolerate food (Vanessa Roblero MD) Liz Hyman Mar 16, 2017 16:19 Vanessa Roblero MD Mar 16, 2017 16:49
[2017-03-16 20:00] VITALS: BP 99/59; PULSE 87; RESP 16; TEMP 99.6; O2SAT 99
[2017-03-17] VITALS: BP 98/60; PULSE 86; RESP 16; TEMP 101; O2SAT 100
[2017-03-17] MEDS: metroNIDAZOLE 500 MG INJ 100 ML IV SCH ×3 (02:02→16:55)
[2017-03-17] MEDS: SUCRALFATE 1 GM/10 ML CUP PO SCH ×4 (05:17→22:57)
[2017-03-17 07:21] LABS: AUTOMATED NEUTROPHIL # 13.7 TH/MM3 (1.8-7.7); BASOPHIL % 0.2 % (0.0-2.0); EOSINOPHIL % 0.2 % (0.0-4.0); HEMATOCRIT 34.6 % (35.0-46.0); HEMO FLAGS DIFF FINAL; LYMPH % 13.5 % (9.0-44.0); LYMPHOCYTE # 2.4 TH/MM3 (1.0-4.8); MEAN CORPUSCULAR HEMOGLOBIN 28.3 PG (27.0-34.0); MEAN CORPUSCULAR HGB CONC 32.2 % (32.0-36.0); MONO % 8.6 % (0.0-8.0); NEUT % 77.5 % (16.0-70.0); PLATELET COUNT 172 TH/MM3 (150-450); RED BLOOD COUNT 3.93 MIL/MM3 (4.00-5.30); RED CELL DISTRIBUTION WIDTH 14.4 % (11.6-17.2); WHITE BLOOD COUNT 17.6 TH/MM3 (4.0-11.0)
[2017-03-17 07:41] LABS: POTASSIUM 3.6 MEQ/L (3.5-5.1)
[2017-03-17 07:43] LABS: MAGNESIUM 2.2 MG/DL (1.5-2.5)
--- NOTE | 2017-03-17 08:33 | HHI.PR ---
Subjective Remarks This is a pleasant 41 y/o Female with n past medical history who came to ER with left sided abdominal pain with nausea, Patient states that the pain started this morning. Patient stated the pain is cramping pain intermittent pain localized to left side abdomen. Patient denies any pain radiation. Patient states that she has nausea but no vomiting diarrhea. Patient denies any dysuria or frequency. Patient denies any vaginal discharge or bleeding. Patient denies any fever chills. Patient denies any history GI issues in the past. Patient states that she unable to take any NSAIDs or pain medication. On a scale of 1-10 the pain is a 9. Seen in Emergency Room the pain is on left lower quadrant, 9/10 in intensity, non radiated. started early in am today when she woke up. states she is visiting from [place] where she has a Bar. but she states drinks alcohol only occasional 03/16: she had fever last night will need to be afebrile 48 hours before discharge, given Lactulose for Constipation 03/17: Stable tolerating regular diet, No nausea, vomit or diarrhea, but continue with fever at 00:00 today was 101 F the patient wants to go home but not possible at this time discussed with Nurse Miss Savage not able to discharge at this time with this presentation. Objective Vital Signs Date Time Temp Pulse Resp B/P Pulse Ox O2 Delivery O2 Flow Rate FiO2 03/17/17 00:00 101.0 86 16 98/60 100 03/16/17 20:00 99.6 87 16 99/59 99 03/16/17 16:00 100.2 82 17 107/65 95 03/16/17 12:00 98.4 77 18 96/68 99 I/O 03/16/17 03/16/17 03/16/17 03/17/17 03/17/17 03/17/17 07:00 15:00 23:00 07:00 15:00 23:00 Intake Total 1445 ml 300 ml 947 ml Output Total 400 ml Balance 1445 ml -100 ml 947 ml Intake Oral 300 ml IV Total 1445 ml 947 ml Output Urine Total 400 ml # Voids 1 2 1 # Bowel Movements 0 2 Result Diagram: 03/17/17 0610 03/17/17 0610 Imaging Last Impressions Abdomen/Pelvis CT 03/15/17 08 Signed Impressions: Service Date/Time: Wednesday, March 15, 2017 09:29 - CONCLUSION: Nondescript slight fluid within the mesenteric root with slight fecalization of the surrounding small bowel bowel and no signs of obstruction. The exact etiology is not certain could be inflammatory due to localized ileus and follow up is recommended after appropriate clinical therapy. Susie Givens MD Abdomen Magnetic Resonance Angio 03/15/17 0000 Signed Impressions: Service Date/Time: Wednesday, March 15, 2017 18:02 - CONCLUSION: Normal MRA of the abdomen. Hao Haley MD Procedures None Other Results Laboratory Tests Test 03/15/17 03/15/17 03/16/17 03/17/17 08:30 20:40 04:43 06:10 Prothrombin Time 11.0 SEC Prothromb Time International 1.0 RATIO Ratio Activated Partial 23.2 SEC Thromboplast Time Urine Color YELLOW Urine Turbidity CLEAR Urine pH 6.5 Urine Specific [place] 1.029 Urine Protein TRACE mg/dL Urine Glucose (UA) NEG mg/dL Urine Ketones NEG mg/dL Urine Occult Blood NEG Urine Nitrite NEG Urine Bilirubin NEG Urine Urobilinogen LESS THAN 2.0 MG/DL Urine Leukocyte Esterase SMALL Urine RBC 2 /hpf Urine WBC 4 /hpf Urine Squamous Epithelial 3 /hpf Cells Urine Mucus FEW /lpf Urine Trichomonas RARE Microscopic Urinalysis Comment CULT NOT INDICATED Urine Opiates Screen NEG Urine Barbiturates Screen NEG Urine Amphetamines Screen NEG Urine Benzodiazepines Screen NEG Urine Cocaine Screen NEG Urine Cannabinoids Screen NEG Erythrocyte Sedimentation Rate 16 mm/hr Sodium Level 140 MEQ/L Chloride Level 108 MEQ/L Carbon Dioxide Level 21.8 MEQ/L Anion Gap 10 MEQ/L Blood Urea Nitrogen 6 MG/DL Creatinine 0.74 MG/DL Estimat Glomerular Filtration 86 ML/MIN Rate Random Glucose 89 MG/DL Calcium Level 7.9 MG/DL Total Bilirubin 0.7 MG/DL Aspartate Amino Transf 7 U/L (AST/SGOT) Alanine Aminotransferase 12 U/L (ALT/SGPT) Alkaline Phosphatase 43 U/L Total Protein 6.5 GM/DL Albumin 2.7 GM/DL Lipase 68 U/L White Blood Count 17.6 TH/MM3 Red Blood Count 3.93 MIL/MM3 Hemoglobin 11.1 GM/DL Hematocrit 34.6 % Mean Corpuscular Volume 88.0 FL Mean Corpuscular Hemoglobin 28.3 PG Mean Corpuscular Hemoglobin 32.2 % Concent Red Cell Distribution Width 14.4 % Platelet Count 172 TH/MM3 Mean Platelet Volume 9.1 FL Neutrophils (%) (Auto) 77.5 % Lymphocytes (%) (Auto) 13.5 % Monocytes (%) (Auto) 8.6 % Eosinophils (%) (Auto) 0.2 % Basophils (%) (Auto) 0.2 % Neutrophils # (Auto) 13.7 TH/MM3 Lymphocytes # (Auto) 2.4 TH/MM3 Monocytes # (Auto) 1.5 TH/MM3 Eosinophils # (Auto) 0.0 TH/MM3 Basophils # (Auto) 0.0 TH/MM3 CBC Comment DIFF FINAL Differential Comment Potassium Level 3.6 MEQ/L Magnesium Level 2.2 MG/DL Objective Remarks GENERAL: Well-nourished, Obesity. SKIN: Focused skin assessment warm/dry. HEAD: Normocephalic. EYES: No scleral icterus. No injection or drainage. NECK: Supple, trachea midline. No JVD or lymphadenopathy. CARDIOVASCULAR: Regular rate and rhythm without murmurs, gallops, or rubs. RESPIRATORY: Breath sounds equal bilaterally. No accessory muscle use. GASTROINTESTINAL: Abdomen soft, non tender, positive bowel sounds. MUSCULOSKELETAL: No cyanosis, or edema. BACK: Nontender without obvious deformity. No CVA tenderness. Neurologic exam normal. Medications and IVs Current Medications Medications (Trade) Dose Ordered Sig/[place] Route Start Time Stop Time Status Last Admin (NS 1000 ml Inj) 1,000 ml @ 100 mls/hr Q10H IV 03/15/17 10:37 03/16/17 21:26 (NS Flush) 2 ml UNSCH PRN IV FLUSH 03/15/17 10:45 (NS Flush) 2 ml BID IV FLUSH 03/15/17 21:00 (Tylenol) 650 mg Q4H PRN PO 03/15/17 10:45 (Zofran Inj) 4 mg Q6H PRN IVP 03/15/17 10:45 (Lovenox Inj) 40 mg Q24H SQ 03/15/17 11:00 Naloxone HCl 0.4 mg 0.4 mg UNSCH PRN IV 03/15/17 10:45 Metronidazole 100 ml @ 100 mls/hr Q8H IV 03/15/17 18:00 03/17/17 02:02 (Cipro 400 Mg Premix) 200 ml @ 200 mls/hr Q12H IV 03/15/17 11:00 03/16/17 21:21 (Protonix Inj) 40 mg Q12H IV PUSH 03/15/17 21:00 03/16/17 21:18 (Carafate Liq) 1 gm ACHS PO 03/15/17 16:00 03/17/17 05:17 (Bentyl) 20 mg TID PO 03/15/17 18:00 03/16/17 16:29 (Simethicone Liq (Drops)) 40 mg QID PRN PO 03/15/17 16:15 03/16/17 08:26 A/P Assessment and Plan 1. Enteritis given Zosyn in ER and Flagyl will continue Flagyl plus Ciprofloxacin, pain control GI following, continue with antibiotics and explained to the patient needs to be at least 48 hours afebrile, Leukocytosis trending down. tolerating Regular diet. 2. Obesity strongly recommended diet and exercise DVT prophylaxis with Lovenox Gastric protection with Protonix. Code Status Full Code. Discussed Condition With Patient and Nurse Miss Savage, all questions answered to the best of my abilities. Discharge Planning Not able to discharge continue febrile, encourage ambulation. Markie Goldberg MD Mar 17, 2017 08:32
[2017-03-17] MEDS ORDERED: POTASSIUM CHLORIDE 20 MEQ CONTROLLED RELEASE TAB PO ONE (08:45)
[2017-03-17] MEDS: SODIUM CHLORIDE 0.9% FLUSH 10 ML FLUSH IV FLUSH SCH ×2 (09:00→22:57)
[2017-03-17] MEDS: CIPROFLOXACIN 400 MG PREMIX 200 ML IV SCH ×2 (09:08→22:57)
[2017-03-17] MEDS: DICYCLOMINE HCL 20 MG TAB PO SCH ×3 (09:09→16:56)
[2017-03-17] MEDS: PANTOPRAZOLE SODIUM 40 MG VIAL IV PUSH SCH ×2 (09:10→22:57)
[2017-03-17] MEDS: ENOXAPARIN SODIUM 40 MG/0.4 ML SYRINGE SQ SCH (09:14)
[2017-03-17] MEDS: SODIUM CHLOR 0.9% 1000 ML INJ 1,000 ML IV SCH (09:14)
[2017-03-17 12:00] VITALS: BP 105/66; PULSE 83; RESP 16; TEMP 98.1; O2SAT 100
[2017-03-17 16:00] VITALS: BP 111/68; PULSE 18; RESP 20; TEMP 98.5; O2SAT 100
--- NOTE | 2017-03-17 17:02 | HHI.GIFU ---
Subjective Remarks Pt resting in bed. Still has some lower abd/suprapubic pain but says it is much improved. No n/v, diarrhea (Teri Garcia) Objective Vitals I&O Vital Signs Date Time Temp Pulse Resp B/P Pulse Ox O2 Delivery O2 Flow Rate FiO2 03/17/17 12:00 98.1 83 16 105/66 100 03/17/17 00:00 101.0 86 16 98/60 100 03/16/17 20:00 99.6 87 16 99/59 99 I/O 03/16/17 03/16/17 03/16/17 03/17/17 03/17/17 03/17/17 07:00 15:00 23:00 07:00 15:00 23:00 Intake Total 1445 ml 300 ml 947 ml 120 ml Output Total 400 ml Balance 1445 ml -100 ml 947 ml 120 ml Intake Oral 300 ml 120 ml IV Total 1445 ml 947 ml Output Urine Total 400 ml # Voids 1 2 1 # Bowel Movements 0 2 Laboratory Laboratory Tests Test 03/17/17 06:10 White Blood Count 17.6 Red Blood Count 3.93 Hemoglobin 11.1 Hematocrit 34.6 Mean Corpuscular Volume 88.0 Mean Corpuscular Hemoglobin 28.3 Mean Corpuscular Hemoglobin 32.2 Concent Red Cell Distribution Width 14.4 Platelet Count 172 Mean Platelet Volume 9.1 Neutrophils (%) (Auto) 77.5 Lymphocytes (%) (Auto) 13.5 Monocytes (%) (Auto) 8.6 Eosinophils (%) (Auto) 0.2 Basophils (%) (Auto) 0.2 Neutrophils # (Auto) 13.7 Lymphocytes # (Auto) 2.4 Monocytes # (Auto) 1.5 Eosinophils # (Auto) 0.0 Basophils # (Auto) 0.0 CBC Comment DIFF FINAL Differential Comment Potassium Level 3.6 Magnesium Level 2.2 Date/Time Procedure Status Source Growth 03/15/17 13:15 Aerobic Blood Culture - Preliminary Resulted Blood Peripheral NO GROWTH IN 2 DAYS 03/15/17 13:15 Anaerobic Blood Culture - Final Resulted Blood Peripheral QNS - SEE AEROBE REPORT Physical Exam HEENT: PERRLA CHEST: CTA CARDIAC: RRR ABDOMEN: Soft, nondistended, mild lower abd/suprapubic TTP; no hepatosplenomegaly; bowel sounds are present x 4 quadrants EXTREMITIES: No clubbing, cyanosis, or edema. SKIN: Normal; no rash; no jaundice. 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 (Teri Garcia) Assessment and Plan Plan ASSESSMENT: - Enteritis with abdominal pain and nausea. Pt has been visiting from [place] x 5 months. Sudden onset of left sided abdominal pain (cramping) with associated nausea- no vomiting. No diarrhea, melena, hematochezia. She denies suspicious food, sick contacts, or recent abx use. States she just had her menstrual cycle 3 days ago. Abdomen/Pelvis CT (03/15/17)---->Nondescript slight fluid within the mesenteric root with slight focalization of the surrounding small bowel bowel and no signs of obstruction. The exact etiology is not certain could be inflammatory due to localized ileus and follow up is recommended after appropriate clinical therapy. No NSAIDs. Occasional ETOH use. WBC 17.6. LFT/ Lipase unremarkable. Protonix/Cipro/Flagyl. IVF. Stool studies pending - Leukocytosis, likely secondary to above. WBC 17.6, febrile last night Blood culture no growth in 1 day. Cipro/Flagyl. PLAN: - IRMA - Cont. PPI - Cont. Cipro/Flagyl - Stool studies - Monitor labs - Supportive care - Further recommendations to follow based on results of above Patient seen and examined by and myself and this note is written on his behalf (Teri Garcia) Physician Comments Patient seen and examined Agree with above Continue with current supportive care Monitor labs Not much to add from a GI perspective at this point in time We will sign off but please have patient follow-up with GI post discharge ( Bob Kelley MD) Teri Garcia Mar 17, 2017 17:02 Bob Kelley MD Mar 18, 2017 00:41
[2017-03-17 20:00] VITALS: BP 104/59; PULSE 81; RESP 19; TEMP 99.8; O2SAT 97
[2017-03-18] VITALS: BP 97/62; PULSE 62; RESP 19; TEMP 99.1; O2SAT 96
[2017-03-18] MEDS: metroNIDAZOLE 500 MG INJ 100 ML IV SCH ×2 (02:00→08:38)
[2017-03-18 04:00] VITALS: TEMP 99.8
[2017-03-18] MEDS: SUCRALFATE 1 GM/10 ML CUP PO SCH ×2 (05:48→11:20)
[2017-03-18 07:41] LABS: AUTOMATED NEUTROPHIL # 12.4 TH/MM3 (1.8-7.7); BASOPHIL # 0.1 TH/MM3 (0-0.2); BASOPHIL % 0.4 % (0.0-2.0); EOSINOPHIL # 0.1 TH/MM3 (0-0.4); EOSINOPHIL % 0.5 % (0.0-4.0); HEMATOCRIT 35.3 % (35.0-46.0); LYMPH % 13.5 % (9.0-44.0); LYMPHOCYTE # 2.2 TH/MM3 (1.0-4.8); MEAN CELL VOLUME 86.8 FL (80.0-100.0); MEAN CORPUSCULAR HEMOGLOBIN 28.1 PG (27.0-34.0); MEAN CORPUSCULAR HGB CONC 32.4 % (32.0-36.0); MONO % 7.6 % (0.0-8.0); PLATELET COUNT 172 TH/MM3 (150-450); RED BLOOD COUNT 4.06 MIL/MM3 (4.00-5.30); RED CELL DISTRIBUTION WIDTH 13.9 % (11.6-17.2); WHITE BLOOD COUNT 15.9 TH/MM3 (4.0-11.0)
[2017-03-18 07:44] LABS: HEMO FLAGS AUTO DIFF
[2017-03-18 08:00] VITALS: BP 92/50; PULSE 75; RESP 17; TEMP 99.4; O2SAT 98
[2017-03-18 08:15] LABS: BICARBONATE 21.8 MEQ/L (21.0-32.0); POTASSIUM 3.6 MEQ/L (3.5-5.1)
[2017-03-18] MEDS: SODIUM CHLORIDE 0.9% FLUSH 10 ML FLUSH IV FLUSH SCH (08:30)
[2017-03-18] MEDS: PANTOPRAZOLE SODIUM 40 MG VIAL IV PUSH SCH (08:30)
[2017-03-18] MEDS: DICYCLOMINE HCL 20 MG TAB PO SCH ×2 (08:30→11:20)
[2017-03-18 08:56] LABS: BANDS 6 % (0-6); METAMYELOCYTES 1 % (0-1); NEUTROPHIL # MANUAL DIFF 13.4 TH/MM3 (1.8-7.7); POLYS (SEG NEUTROPHILS) 77 % (16-70); WBC DIFF SAMPLE 100
[2017-03-18 08:57] LABS: PLATELET ESTIMATE SMEAR NORMAL (NORMAL); PLATELET MORPHOLOGY NORMAL (NORMAL)
[2017-03-18 08:58] LABS: SCAN/DIFF FINAL DIFF MANUAL
[2017-03-18] MEDS: ENOXAPARIN SODIUM 40 MG/0.4 ML SYRINGE SQ SCH (11:00)
[2017-03-18] MEDS: CIPROFLOXACIN 400 MG PREMIX 200 ML IV SCH (11:20)
[2017-03-18 12:00] VITALS: BP 99/66; PULSE 72; RESP 17; TEMP 98.9; O2SAT 94
--- NOTE | 2017-03-18 12:13 | HHI.PR ---
Subjective Remarks This is a pleasant 41 y/o Female with n past medical history who came to ER with left sided abdominal pain with nausea, Patient states that the pain started this morning. Patient stated the pain is cramping pain intermittent pain localized to left side abdomen. Patient denies any pain radiation. Patient states that she has nausea but no vomiting diarrhea. Patient denies any dysuria or frequency. Patient denies any vaginal discharge or bleeding. Patient denies any fever chills. Patient denies any history GI issues in the past. Patient states that she unable to take any NSAIDs or pain medication. On a scale of 1-10 the pain is a 9. Seen in Emergency Room the pain is on left lower quadrant, 9/10 in intensity, non radiated. started early in am today when she woke up. states she is visiting from [place] where she has a Bar. but she states drinks alcohol only occasional 03/16: she had fever last night will need to be afebrile 48 hours before discharge, given Lactulose for Constipation 03/17: Stable tolerating regular diet, No nausea, vomit or diarrhea, but continue with fever at 00:00 today was 101 F 03/18: Seen in her bedroom, no nausea, vomit or diarrhea, okay from GI specialist standpoint to discharge Home asked to follow with GI specialist in one week and continue antibiotics for 10 more days. Objective Vital Signs Date Time Temp Pulse Resp B/P Pulse Ox O2 Delivery O2 Flow Rate FiO2 03/18/17 08:00 99.4 75 17 92/50 98 03/18/17 04:00 99.8 03/18/17 00:00 99.1 62 19 97/62 96 03/17/17 20:00 99.8 81 19 104/59 97 03/17/17 16:00 98.5 18 20 111/68 100 I/O 03/17/17 03/17/17 03/17/17 03/18/17 03/18/17 03/18/17 07:00 15:00 23:00 07:00 15:00 23:00 Intake Total 947 ml 600 ml 360 ml 540 ml Output Total 700 ml Balance 947 ml -100 ml 360 ml 540 ml Intake Oral 600 ml 360 ml 240 ml IV Total 947 ml 300 ml Output Urine Total 700 ml # Voids 1 2 2 # Bowel Movements 0 0 0 Result Diagram: 03/18/17 0710 03/18/17 0710 Imaging Last Impressions Abdomen/Pelvis CT 03/15/17 0829 Signed Impressions: Service Date/Time: Wednesday, March 15, 2017 09:29 - CONCLUSION: Nondescript slight fluid within the mesenteric root with slight fecalization of the surrounding small bowel bowel and no signs of obstruction. The exact etiology is not certain could be inflammatory due to localized ileus and follow up is recommended after appropriate clinical therapy. Susie Givens MD Abdomen Magnetic Resonance Angio 03/15/17 0000 Signed Impressions: Service Date/Time: Wednesday, March 15, 2017 18:02 - CONCLUSION: Normal MRA of the abdomen. Hao Haley MD Procedures None Other Results Laboratory Tests Test 03/15/17 03/15/17 03/16/17 03/17/17 08:30 20:40 04:43 06:10 Prothrombin Time 11.0 SEC Prothromb Time International 1.0 RATIO Ratio Activated Partial 23.2 SEC Thromboplast Time Urine Color YELLOW Urine Turbidity CLEAR Urine pH 6.5 Urine Specific [place] 1.029 Urine Protein TRACE mg/dL Urine Glucose (UA) NEG mg/dL Urine Ketones NEG mg/dL Urine Occult Blood NEG Urine Nitrite NEG Urine Bilirubin NEG Urine Urobilinogen LESS THAN 2.0 MG/DL Urine Leukocyte Esterase SMALL Urine RBC 2 /hpf Urine WBC 4 /hpf Urine Squamous Epithelial 3 /hpf Cells Urine Mucus FEW /lpf Urine Trichomonas RARE Microscopic Urinalysis Comment CULT NOT INDICATED Urine Opiates Screen NEG Urine Barbiturates Screen NEG Urine Amphetamines Screen NEG Urine Benzodiazepines Screen NEG Urine Cocaine Screen NEG Urine Cannabinoids Screen NEG Erythrocyte Sedimentation Rate 16 mm/hr Anti-Nuclear Antibody Screen NEG Total Bilirubin 0.7 MG/DL Aspartate Amino Transf 7 U/L (AST/SGOT) Alanine Aminotransferase 12 U/L (ALT/SGPT) Alkaline Phosphatase 43 U/L Total Protein 6.5 GM/DL Albumin 2.7 GM/DL Lipase 68 U/L Magnesium Level 2.2 MG/DL Test 03/18/17 07:10 White Blood Count 15.9 TH/MM3 Red Blood Count 4.06 MIL/MM3 Hemoglobin 11.4 GM/DL Hematocrit 35.3 % Mean Corpuscular Volume 86.8 FL Mean Corpuscular Hemoglobin 28.1 PG Mean Corpuscular Hemoglobin 32.4 % Concent Red Cell Distribution Width 13.9 % Platelet Count 172 TH/MM3 Mean Platelet Volume 8.8 FL Neutrophils (%) (Auto) 78.0 % Lymphocytes (%) (Auto) 13.5 % Monocytes (%) (Auto) 7.6 % Eosinophils (%) (Auto) 0.5 % Basophils (%) (Auto) 0.4 % Neutrophils # (Auto) 12.4 TH/MM3 Lymphocytes # (Auto) 2.2 TH/MM3 Monocytes # (Auto) 1.2 TH/MM3 Eosinophils # (Auto) 0.1 TH/MM3 Basophils # (Auto) 0.1 TH/MM3 CBC Comment AUTO DIFF Differential Total Cells 100 Counted Neutrophils % (Manual) 77 % Band Neutrophils % 6 % Lymphocytes % 11 % Monocytes % 5 % Neutrophils # (Manual) 13.4 TH/MM3 Metamyelocytes 1 % Differential Comment FINAL DIFF MANUAL Platelet Estimate NORMAL Platelet Morphology Comment NORMAL Red Cell Morphology Comment NORMAL Sodium Level 138 MEQ/L Potassium Level 3.6 MEQ/L Chloride Level 107 MEQ/L Carbon Dioxide Level 21.8 MEQ/L Anion Gap 9 MEQ/L Blood Urea Nitrogen 5 MG/DL Creatinine 0.71 MG/DL Estimat Glomerular Filtration 90 ML/MIN Rate Random Glucose 92 MG/DL Calcium Level 8.7 MG/DL Objective Remarks GENERAL: Well-nourished, Obesity. SKIN: Focused skin assessment warm/dry. HEAD: Normocephalic. EYES: No scleral icterus. No injection or drainage. NECK: Supple, trachea midline. No JVD or lymphadenopathy. CARDIOVASCULAR: Regular rate and rhythm without murmurs, gallops, or rubs. RESPIRATORY: Breath sounds equal bilaterally. No accessory muscle use. GASTROINTESTINAL: Abdomen soft, non tender, positive bowel sounds. MUSCULOSKELETAL: No cyanosis, or edema. BACK: Nontender without obvious deformity. No CVA tenderness. Neurologic exam normal. Medications and IVs Current Medications Medications (Trade) Dose Ordered Sig/Davonte Route Start Time Stop Time Status Last Admin (NS Flush) 2 ml UNSCH PRN IV FLUSH 03/15/17 10:45 (NS Flush) 2 ml BID IV FLUSH 03/15/17 21:00 03/18/17 08:30 (Tylenol) 650 mg Q4H PRN PO 03/15/17 10:45 (Zofran Inj) 4 mg Q6H PRN IVP 03/15/17 10:45 (Lovenox Inj) 40 mg Q24H SQ 03/15/17 11:00 Naloxone HCl 0.4 mg 0.4 mg UNSCH PRN IV 03/15/17 10:45 Metronidazole 100 ml @ 100 mls/hr Q8H IV 03/15/17 18:00 03/18/17 08:38 (Cipro 400 Mg Premix) 200 ml @ 200 mls/hr Q12H IV 03/15/17 11:00 03/18/17 11:20 (Protonix Inj) 40 mg Q12H IV PUSH 03/15/17 21:00 03/18/17 08:30 (Carafate Liq) 1 gm ACHS PO 03/15/17 16:00 03/18/17 11:20 (Bentyl) 20 mg TID PO 03/15/17 18:00 03/18/17 11:20 (Simethicone Liq (Drops)) 40 mg QID PRN PO 03/15/17 16:15 03/16/17 08:26 A/P Assessment and Plan 1. Enteritis given Zosyn in ER and Flagyl will continue Flagyl plus Ciprofloxacin, pain control GI following, continue with antibiotics and explained to the patient needs to be at least 48 hours afebrile, Leukocytosis trending down. tolerating Regular diet. okay by GI specialist to discharge Home will continue Ciprofloxacin 500 mg BID and Flagyl 500 mg TID for 10 days. 2. Obesity strongly recommended diet and exercise DVT prophylaxis with Lovenox Gastric protection with Protonix. Code Status Full Code. Discussed Condition With Patient and Nurse Miss Lebron, all questions answered to the best of my abilities. Discharge Planning patient afebrile okay to discharge Home now. Markie Goldberg MD Mar 18, 2017 12:12
[2017-03-18] MEDS ORDERED: METR-1 PO (14:46)
[2017-03-18] MEDS ORDERED: CIPR-9 PO (14:46)
--- NOTE | 2017-03-18 14:51 | HHI.DS ---
Discharge Summary Admission Date Mar 15, 2017 at 10:41 Discharge Date: Mar 18, 2017 Admitting Diagnosis abdominal pain. Enteritis. Ileus. (1) Enteritis ICD Code: K52.9 Diagnosis: Principal Procedures None Brief History - From Admission This is a pleasant 41 y/o Female with n past medical history who came to ER with left sided abdominal pain with nausea, Patient states that the pain started this morning. Patient stated the pain is cramping pain intermittent pain localized to left side abdomen. Patient denies any pain radiation. Patient states that she has nausea but no vomiting diarrhea. Patient denies any dysuria or frequency. Patient denies any vaginal discharge or bleeding. Patient denies any fever chills. Patient denies any history GI issues in the past. Patient states that she unable to take any NSAIDs or pain medication. On a scale of 1-10 the pain is a 9. Seen in Emergency Room the pain is on left lower quadrant, 9/10 in intensity, non radiated. started early in am today when she woke up. states she is visiting from [place] where she has a Bar. but she states drinks alcohol only occasional CBC/BMP: 03/18/17 0710 03/18/17 0710 Significant Findings Laboratory Tests Test 03/16/17 03/17/17 03/18/17 04:43 06:10 07:10 White Blood Count 18.7 TH/MM3 17.6 TH/MM3 15.9 TH/MM3 (4.0-11.0) (4.0-11.0) (4.0-11.0) Neutrophils (%) (Auto) 77.2 % 77.5 % 78.0 % (16.0-70.0) (16.0-70.0) (16.0-70.0) Neutrophils # (Auto) 14.5 TH/MM3 13.7 TH/MM3 12.4 TH/MM3 (1.8-7.7) (1.8-7.7) (1.8-7.7) Monocytes # (Auto) 1.3 TH/MM3 1.5 TH/MM3 1.2 TH/MM3 (0-0.9) (0-0.9) (0-0.9) Potassium Level 3.4 MEQ/L (3.5-5.1) Chloride Level 108 MEQ/L (98-107) Blood Urea Nitrogen 6 MG/DL (7-18) 5 MG/DL (7-18) Estimat Glomerular Filtration 86 ML/MIN (>89) Rate Calcium Level 7.9 MG/DL (8.5-10.1) Aspartate Amino Transf 7 U/L (15-37) (AST/SGOT) Alkaline Phosphatase 43 U/L (45-117) Albumin 2.7 GM/DL (3.4-5.0) Lipase 68 U/L (73-393) Red Blood Count 3.93 MIL/MM3 (4.00-5.30) Hemoglobin 11.1 GM/DL 11.4 GM/DL (11.6-15.3) (11.6-15.3) Hematocrit 34.6 % (35.0-46.0) Monocytes (%) (Auto) 8.6 % (0.0-8.0) Neutrophils % (Manual) 77 % (16-70) Neutrophils # (Manual) 13.4 TH/MM3 (1.8-7.7) Imaging Last Impressions Abdomen/Pelvis CT 03/15/17 0829 Signed Impressions: Service Date/Time: Wednesday, March 15, 2017 09:29 - CONCLUSION: Nondescript slight fluid within the mesenteric root with slight fecalization of the surrounding small bowel bowel and no signs of obstruction. The exact etiology is not certain could be inflammatory due to localized ileus and follow up is recommended after appropriate clinical therapy. Susie Givens MD Abdomen Magnetic Resonance Angio 03/15/17 0000 Signed Impressions: Service Date/Time: Wednesday, March 15, 2017 18:02 - CONCLUSION: Normal MRA of the abdomen. Hao Haley MD PE at Discharge GENERAL: Well-nourished, Obesity. SKIN: Focused skin assessment warm/dry. HEAD: Normocephalic. EYES: No scleral icterus. No injection or drainage. NECK: Supple, trachea midline. No JVD or lymphadenopathy. CARDIOVASCULAR: Regular rate and rhythm without murmurs, gallops, or rubs. RESPIRATORY: Breath sounds equal bilaterally. No accessory muscle use. GASTROINTESTINAL: Abdomen soft, non tender, positive bowel sounds. MUSCULOSKELETAL: No cyanosis, or edema. BACK: Nontender without obvious deformity. No CVA tenderness. Neurologic exam normal. Hospital Course This is a pleasant 41 y/o Female with n past medical history who came to ER with left sided abdominal pain with nausea, Patient states that the pain started this morning. Patient stated the pain is cramping pain intermittent pain localized to left side abdomen. Patient denies any pain radiation. Patient states that she has nausea but no vomiting diarrhea. Patient denies any dysuria or frequency. Patient denies any vaginal discharge or bleeding. Patient denies any fever chills. Patient denies any history GI issues in the past. Patient states that she unable to take any NSAIDs or pain medication. On a scale of 1-10 the pain is a 9. Seen in Emergency Room the pain is on left lower quadrant, 9/10 in intensity, non radiated. started early in am today when she woke up. states she is visiting from [place] where she has a Bar. but she states drinks alcohol only occasional 03/16: she had fever last night will need to be afebrile 48 hours before discharge, given Lactulose for Constipation 03/17: Stable tolerating regular diet, No nausea, vomit or diarrhea, but continue with fever at 00:00 today was 101 F 03/18: Seen in her bedroom, no nausea, vomit or diarrhea, okay from GI specialist standpoint to discharge Home asked to follow with GI specialist in one week and continue antibiotics for 10 more days. Assessment and Plan 1. Enteritis given Zosyn in ER and Flagyl will continue Flagyl plus Ciprofloxacin, pain control GI following, continue with antibiotics and explained to the patient needs to be at least 48 hours afebrile, Leukocytosis trending down. tolerating Regular diet. okay by GI specialist to discharge Home will continue Ciprofloxacin 500 mg BID and Flagyl 500 mg TID for 10 days. 2. Obesity strongly recommended diet and exercise DVT prophylaxis with Lovenox Gastric protection with Protonix. Code Status Full Code. Discussed Condition With Patient and Nurse Miss Lebron, all questions answered to the best of my abilities. Discharge Planning patient afebrile okay to discharge Home now. Pt Condition on Discharge: Good Discharge Disposition: Discharge Home Discharge Time: <= 30 minutes Discharge Instructions DIET: Follow Instructions for: As Tolerated, No Restrictions Activities you can perform: Regular-No Restrictions Markie Goldberg MD Mar 18, 2017 14:51
== END 2017-03-18 15:29 | disposition home or self-care (01) | DRG 392 ==
LOC: NEPE 07:39 → NEDA 10:41 → N07A 13:47
PROVIDERS: ADMIT Internal Medicine; ATTEND Internal Medicine
DX: K52.9 Noninfective gastroenteritis and colitis, unspecified (principal); E66.9 Obesity, unspecified; K59.00 Constipation, unspecified
CPT/HCPCS: 74177; 76937; 80048; 80053; 80307; 81001; 83690; 83735; 84132; 84703; 85007; 85025; 85027; 85610; 85652; 85730; 86038; 87040; 96374; 96375; A9579; C8900; C9113; J0744; J2405; J2543; J7030; Q9967